=== PATIENT | male | born 1970 | race Hispanic/Latino ===

== ENCOUNTER 2025-02-25 09:35 | Inpatient (IN) | payer OTHER ==
[2025-02-25] VITALS (21 sets, daily range): BP systolic 124–152; BP diastolic 61–95; PULSE 57–83; RESP 9–17; TEMP 97.9–98.6; O2SAT 96–97
[~2025-02-25] VITALS: Ht 167.6 cm; Wt 79.4 kg
[~2025-02-25 09:35] MED LIST: CARV25TA PO; FURO20TA4 PO; HYDR50TA37 PO; ISOS20TA9 PO; LEVO25CA5 PO; SPIR25TA6 PO
[2025-02-25] MEDS: HEParin 5,000 UNIT VIAL ONE (09:46)
[2025-02-25 09:51] LABS: BASOPHILS # (AUTO) 0.05 K/uL (0.00-0.20); BASOPHILS % (AUTO) 1.2 % (0.0-5.0); EOSINOPHILS # (AUTO) 0.16 K/uL (0.00-0.70); EOSINOPHILS % (AUTO) 3.9 % (0.0-8.0); HEMATOCRIT 44.2 % (42-54); LYMPHOCYTES # (AUTO) 1.7 K/uL (1.0-4.8); LYMPHOCYTES % (AUTO) 41.8 % (21.0-51.0); MEAN CORPUSCULAR HEMOGLOBIN 30.4 pg (27.0-33.0); MEAN CORPUSCULAR HGB CONC 34.2 g/dL (32.0-36.0); MEAN CORPUSCULAR VOLUME 89.1 fL (79-99); MONOCYTES # (AUTO) 0.7 K/uL (0.1-1.0); MONOCYTES % (AUTO) 16.3 % (3.0-13.0); NEUTROPHILS # (AUTO) 1.5 K/uL (1.8-7.7); NEUTROPHILS % (AUTO) 36.8 % (40.0-77.0); PLATELET COUNT (AUTO) 242 K/uL (130-400); RED BLOOD CELL COUNT(AUTO) 4.96 MIL/uL (4.50-6.20); RED CELL DISTRIBUTION WIDTH 13.2 % (11.0-15.5); WHITE BLOOD COUNT (AUTO) 4.1 K/uL (4.8-10.8)
[2025-02-25] MEDS: NITROGLYCERIN 0.4 MG SL TAB SL ONE (09:51)
[2025-02-25] MEDS ORDERED: cloPIDOgrel 300MG TAB ONE (09:55)
[2025-02-25] MEDS ORDERED: HEParin 10,000 UNIT/10ML (1,000 UNIT/ML) VIAL ONE (09:55)
[2025-02-25] MEDS ORDERED: MIDAZOLAM HCL 1 MG/ML 2ML VIAL ONE (09:56)
[2025-02-25] MEDS ORDERED: IOHEXOL 350 MG/ML 100ML INFUS..BTL IV ONE (09:57)
[2025-02-25 10:00] LABS: CREATININE 1.6 mg/dL (0.5-1.3); POTASSIUM 4.1 mmol/L (3.5-5.1)
[2025-02-25] MEDS ORDERED: NITROGLYCERIN 0.4 MG SL TAB SL PRN (10:00)
[2025-02-25] MEDS ORDERED: HEParin 5,000 UNIT VIAL IV SCH (10:00)
[2025-02-25 10:01] LABS: INR 1.03 (0.85-1.15); PROTHROMBIN TIME 10.9 SEC (9.6-11.6)
[2025-02-25] MEDS ORDERED: FENTanyl CITRate PF 50 MCG/1 ML 2ML VIAL ONE (10:01)
[2025-02-25 10:03] LABS: PARTIAL THROMBOPLASTIN TIME 26.8 SEC (26.3-35.5)
[2025-02-25 10:13] LABS: MAGNESIUM 2.1 mg/dL (1.80-2.40)
--- NOTE | 2025-02-25 10:15 | ERN ---
General Chief Complaint: Chest Pain Stated Complaint: CP Time Seen by MD: 09:35 Source: patient, police History of Present Illness Initial Comments PATIENT IS A 54-YEAR-OLD GENTLEMAN COMING IN TO COMPLAINING OF CHEST PAIN. PER PATIENT CHEST PAIN BEGAN EARLIER TODAY. HE WAS SEEN BEFORE AT THE HOSPITAL BUT PER REPORT FROM EMS PATIENT LEFT AGAINST MEDICAL ADVICE. DELAYED TIME ON REPEAT EKG DUE TO LAW ENFORCEMENT PROTOCOL. UNABLE TO PROPERLY ASSESS DUE TO HAND CUT HAS BEEN IN PLACE AND ORDER NEEDED TO BE SENT FOR SUPERVISED WAS APPROVAL OF HAND CUFF RELEASE, TO PROPERLY ASSESS. Allergies: Coded Allergies: No Known Allergies (Unverified Allergy, Unknown, 02/21/25) Home Meds Reported Medications Hydralazine HCl (Hydralazine HCl) 50 Mg Tablet, 1 TAB PO BID for 30 Days, #60 TAB 0 Refills 02/21/25 Spironolactone (Spironolactone) 25 Mg Tablet, 1 TAB PO BID for 30 Days, #30 TAB 0 Refills 02/21/25 Levothyroxine Sodium (Levothyroxine) 25 Mcg Capsule, 1 CAP PO DAILY for 30 Days, #30 CAP 0 Refills 02/21/25 Isosorbide Dinitrate (Isosorbide Dinitrate) 20 Mg Tablet, 1 TAB PO BID for 30 Days, #60 TAB 0 Refills 02/21/25 Furosemide (Furosemide) 20 Mg Tablet, 1 TAB PO BID for 30 Days, #30 TAB 0 Refills 02/21/25 Carvedilol (Carvedilol) 25 Mg Tablet, 1 TAB PO BID for 30 Days, #60 TAB 0 Refills 02/21/25 Past Medical History Past Medical History: CAD, CHF, [place] Past Surgical History: Other Surgical History Other: TRAUMA LEFT LUNG ROS Dictation CONSTITUTIONAL: NO CHILLS, NO FEVER, NO WEAKNESS, NO DIAPHORESIS, NO MALAISE. HEAD/FACE: NO SIGNS OF TRAUMA. EENT: NO EYE PAIN, NO BLURRED VISION, NO TEARING, NO DOUBLE VISION, NO EAR PAIN, NO EAR DISCHARGE, NO NOSE PAIN, NO NASAL CONGESTION, NO THROAT PAIN, NO THROAT SWELLING, NO MOUTH PAIN. RESPIRATORY: NO COUGH, NO ORTHOPNEA, NO SOB, NO STRIDOR, NO WHEEZING. CARDIOVASCULAR: CHEST PAIN, NO EDEMA, NO PALPITATIONS, NO SYNCOPE. GASTROINTESTINAL/ABDOMINAL: NO ABDOMINAL PAIN, NO CONSTIPATION, NO DIARRHEA, NO NAUSEA, NO VOMITING. GENITOURINARY: NO ABNORMAL DISCHARGE, NO DYSURIA, NO FREQUENT URINATION, NO HEMATURIA. NO COMPLAINTS OF PAIN IN THE GENITALS. MUSCULOSKELETAL: NO BACK PAIN, NO GOUT, NO JOINT PAIN, NO JOINT SWELLING, NO MUSCLE PAIN, NO MUSCLE STIFFNESS, NO NECK PAIN. INTEGUMENTARY: NO CHANGE IN COLOR, NO CHANGE IN HAIR/NAILS, NO DRYNESS, NO LESION, NO LUMPS, NO RASH. NEUROLOGICAL/PSYCH: NO ANXIETY, NOT DEPRESSED, NO EMOTIONAL PROBLEM, NO HEA DACHE, NO NUMBNESS, NO PRE-EXISTING DEFICIT, NO HISTORY OF SEIZURES, NO TREMORS, NO WEAKNESS. HEMATOLOGIC/LYMPHATIC: NOT ANEMIC, NO HISTORY OF BLOOD CLOTS, NO APPARENT BLEEDING, NO BRUISING, GLANDS NOT SWOLLEN. ALL SYSTEMS NEGATIVE, EXCEPT NOTED. Physical Exam Physical Exam Dictation VITAL SIGNS: REVIEWED. GENERAL APPEARANCE: ALERT, ORIENTED X3, NO ACUTE DISTRESS, OBESE. HEAD AND FACE: NON-TRAUMATIC. EYES: PERRL, PINK CONJUNCTIVAS, EYELID NO TRAUMA, ANTERIOR CHAMBER CLEAR. EARS: PINNAS INTACT AND NO SIGNS OF TRAUMA OR ERYTHEMA. EAR CANALS CLEAR AND NO DISCHARGE. TMS NO ERYTHEMA. NOSE: NO DISCHARGE, NO BLEEDING. OROPHARYNX: MOUTH NORMAL, TEETH NO CARIES, TONGUE PINK. PHARYNX CLEAR, NO ERYTHEMA. TONSILS NO EXUDATES, NO ABSCESSES NOTED. MUCOUS MEMBRANE MOIST. NECK: SUPPLE, NON-TENDER, NO THYROMEGALY, NO MASSES, NO JVD, NO BRUITS. BREAST: DEFERRED. CHEST: NO TENDERNESS, NO CREPITUS, NO PARADOXICAL MOVEMENT, NO RETRACTIONS. LUNGS: CLEAR, WELL-VENTILATED, SYMMETRIC, NO RALES, NO WHEEZING, NO RHONCHI, NO STRIDOR, GOOD BREATH SOUNDS BILATERALLY. HEART: REGULAR RATE, REGULAR RHYTHM, NO MURMUR, NO GALLOPS. VASCULAR: NO PERIPHERAL EDEMA. ABDOMEN: SOFT, POSITIVE BOWEL SOUNDS, NONDISTENDED, NO GUARDING, NONTENDER, NO REBOUND, NO MASSES NO HEPATOMEGALY, NO SPLENOMEGALY, NO KUMARI'S SIGN, NO HERNIAS. RECTAL: DEFERRED. GENITAL: DEFERRED. NEUROLOGICAL: NORMAL SPEECH, GROSS MOTOR FUNCTION INTACT, GROSS SENSORY FUNCTION INTACT. MUSCULOSKELETAL: NECK NONTENDER, FULL RANGE OF MOTION, BACK NONTENDER, FULL RANGE OF MOTION. EXTREMITIES: NONTENDER, FULL RANGE OF MOTION. SKIN: COLOR PINK, DRY, NO TURGOR, NO RASH, NO LACERATIONS, NO ABRASIONS, NO CONTUSIONS. LYMPHATICS: DEFERRED. Results Laboratory and Microbiology Lab and Micro Result Laboratory Tests Test 02/25/25 09:44 White Blood Count 4.1 K/uL (4.8-10.8) L Red Blood Count 4.96 MIL/uL (4.50-6.20) Hemoglobin 15.1 g/dL (14.0-18.0) Hematocrit 44.2 % (42-54) Mean Corpuscular Volume 89.1 fL (79-99) Mean Corpuscular Hemoglobin 30.4 pg (27.0-33.0) Mean Corpuscular Hemoglobin Concent 34.2 g/dL (32.0-36.0) Red Cell Distribution Width 13.2 % (11.0-15.5) Platelet Count 242 K/uL (130-400) Mean Platelet Volume 9.9 fL (7.5-10.5) Immature Granulocyte % (Auto) 0.0 % (0-1) Neutrophils (%) (Auto) 36.8 % (40.0-77.0) L Lymphocytes (%) (Auto) 41.8 % (21.0-51.0) Monocytes (%) (Auto) 16.3 % (3.0-13.0) H Eosinophils (%) (Auto) 3.9 % (0.0-8.0) Basophils (%) (Auto) 1.2 % (0.0-5.0) Neutrophils # (Auto) 1.5 K/uL (1.8-7.7) L Lymphocytes # (Auto) 1.7 K/uL (1.0-4.8) Monocytes # (Auto) 0.7 K/uL (0.1-1.0) Eosinophils # (Auto) 0.16 K/uL (0.00-0.70) Basophils # (Auto) 0.05 K/uL (0.00-0.20) Absolute Immature Granulocyte (auto 0.00 K/uL (0-1) Nucleated Red Blood Cells 0.0 % (0.0-0.19) Prothrombin Time 10.9 SEC (9.6-11.6) Prothromb Time International Ratio 1.03 (0.85-1.15) Activated Partial Thromboplast Time 26.8 SEC (26.3-35.5) Sodium Level 139 mmol/L (136-145) Potassium Level 4.1 mmol/L (3.5-5.1) Chloride Level 103 mmol/L (101-111) Carbon Dioxide Level 32 mmol/L (21-32) Blood Urea Nitrogen 22 mg/dL (7-18) H Creatinine 1.6 mg/dL (0.5-1.3) H Glomerular Filtration Rate Calc 50 mL/min (>90) Random Glucose 109 mg/dL (70-105) H Total Calcium 9.0 mg/dL (8.5-10.1) Magnesium Level 2.10 mg/dL (1.80-2.40) Total Creatine Kinase 231 U/L (21-232) # Troponin I High Sensitivity 504 ng/L (4-75) *H B-Type Natriuretic Peptide 88 pg/mL (0-100) Triglycerides Level 67 mg/dL (30-200) Cholesterol Level 184 mg/dL (<200) LDL Cholesterol 91 mg/dL (0-99) HDL Cholesterol 61 mg/dL (29-71) Labs Reviewed?: Yes EKG/XRAY/US/CT/MRI EKG Comment EMS EKG ST WAVE ELEVATION V2 V3 V4 V5 CONSISTENT WITH STEMI REPEAT EKG ER 02/25/2025 TIME 9:37 A.M. VENTRICULAR RATE 85 SINUS RHYTHM [place] [address] WAVE CHANGES SUGGESTIVE OF STEMI UNABLE TO FULLY ASSESS WITH PROPER EKG DUE TO PATIENT BEING HANDCUFFED MDM MDM: DIFFERENTIAL DIAGNOSIS: STEMI, NSTEMI, CHEST PAIN, RATIONALE: TESTS CONSIDERED AND ORDERED SECONDARY TO SHARED DECISION MAKING INCLUDE: LABS, ECG AND RADIOLOGY PREVIOUS OUTSIDE RECORDS REVIEWED: OLD ER VISITS. RISK OF COMPLICATION AND/OR MORBIDITY OR MORTALITY OF PATIENT MANAGEMENT: NONE MEDICATIONS-PER MEDICATION RECONCILIATION NEED FOR HOSPITALIZATION: PATIENT DOES MEET CRITERIA FOR HOSPITALIZATION. NEED FOR EMERGENCY MAJOR/MINOR SURGERY: NO THERE ARE NO SOCIAL CONCERNS WITH THIS PATIENT. PRESCRIPTION DRUG MANAGEMENT PRESCRIPTIONS WILL INCLUDE SYMPTOMATIC CARE PATIENT'S PRIOR EXTERNAL MEDICAL RECORDS FROM OTHER ER VISITS WERE REVIEWED BY ME INDICATED. PRIOR TESTING AND RESULTS FROM PREVIOUS VISITS WERE REVIEWED. PRIOR TESTS WERE TAKEN INTO ACCOUNT WITH MEDICAL DECISION MAKING AND RESOURCE UTILIZATION, INDEPENDENT HISTORIAN/HISTORIANS WERE USED TO OBTAIN COMPLETE MEDICAL HISTORY. I INDEPENDENTLY INTERPRETED THE TEST THAT WERE PERFORMED, RESULTS WERE REVIEWED BY ME AND CONSIDERED FINDINGS ON RADIOLOGY IF ORDERED. MEDICAL MANAGEMENT AND EXAMINATION INTERPRETATION DISCUSSIONS WERE HAD BY ME WITH OTHER QUALIFIED HEALTHCARE PROFESSIONALS INDICATED FOR THE PATIENT'S CARE. PATIENT WILL BE ADMITTED UNDER THE CARE OF DR. METZ FOR ONGOING MANAGEMENT, OCCUPATIONAL THERAPY DEPARTMENT CHAIR DR. PARNELL TOOK PATIENT TO [facility] ED Course Orders Procedure Category Date Status Time Cbc With Differential LAB 02/25/25 In Process 09:36 Prothrombin Time With LAB 02/25/25 Complete INR 09:36 B-Type Natriuretic LAB 02/25/25 In Process Peptide 09:36 Lipid Panel LAB 02/25/25 Complete 09:36 Chest 1vw RAD 02/25/25 Logged 09:36 12 Lead Ekg Tracing- EKG 02/25/25 Complete Technical 09:36 Magnesium LAB 02/25/25 Complete 09:36 Creatine Kinase, Total LAB 02/25/25 Complete 09:36 Troponin I High LAB 02/25/25 Complete Sensitivity 09:36 Urinalysis Profile LAB 02/25/25 Logged 09:36 Partial LAB 02/25/25 Complete Thromboplastin Time 09:36 Basic Metabolic Panel LAB 02/25/25 Complete 09:36 Nitroglycerin 0.4mg PHA 02/25/25 Complete Sl Tab (Nitrostat) 09:41 Heparin 5,000 Unit PHA 02/25/25 Complete Vial (Heparin 5,000 U 09:43 Nitroglycerin 0.4mg PHA 02/25/25 Complete Sl Tab (Nitrostat) 10:00 Table Keeper Procedure CATH 02/25/25 In Process Request 12:00 Clopidogrel 300mg Tab PHA 02/25/25 Complete (Plavix 300mg Tab) 09:55 Heparin 10,000 PHA 02/25/25 Complete Unit/10ml (Heparin 09:55 Midazolam Hcl (Versed) PHA 02/25/25 Complete 09:56 Iohexol (Omnipaque) PHA 02/25/25 Complete 09:57 Nitroglycerin 0.4mg PHA 02/25/25 In Process Sl Tab (Nitrostat) 10:00 Fentanyl Citrate Pf PHA 02/25/25 Complete 0.05 Mg/Ml (Fentanyl 10:01 Heparin 5,000 Unit PHA 02/25/25 Complete Vial (Heparin 5,000 U 10:00 Heparin 5,000 Unit PHA 02/25/25 Complete Vial (Heparin 5,000 U 10:30 Heparin 5,000 Unit PHA 02/25/25 Complete Vial (Heparin 5,000 U 10:30 Lidocaine Hcl PHA 02/25/25 Complete 400mg/20ml (Lidocaine 10:21 Heparin-Ns 1,000 PHA 02/25/25 Complete Unit/500 Ml 10:22 Nitroglycerin 50mg PHA 02/25/25 Complete Vial (Tridil 50mg/10m 10:22 Iohexol (Omnipaque) PHA 02/25/25 Complete 10:34 Aspirin 325mg Ec Tab PHA 02/25/25 Complete (Aspirin 325mg Ec T 10:50 Current Medications Medications (Trade) Dose Ordered Sig/Imelda Route PRN Reason Start Time Stop Time Status Last Admin Dose Admin Aspirin (Aspirin 325mg Ec Tab) 325 mg STK-MED ONCE PO 02/25/25 10:50 02/25/25 10:50 DC Clopidogrel Bisulfate (plaVIX 300MG TAB) 300 mg STK-MED ONCE .ROUTE 02/25/25 09:55 02/25/25 09:55 DC Fentanyl Citrate (FENTanyl CITRate PF 50 MCG/ 1 ML 2ML VIAL) 100 mcg STK-MED ONCE .ROUTE 02/25/25 10:01 02/25/25 10:01 DC Heparin Sodium (Porcine) (HEParin 10,000 UNIT/10ML) 10,000 unit STK-MED ONCE .ROUTE 02/25/25 09:55 02/25/25 09:55 DC Heparin Sodium (Porcine) (HEParin 5,000 UNIT VIAL) 4,000 unit ONCE IV 02/25/25 10:00 02/25/25 10:06 DC Heparin Sodium (Porcine) (HEParin 5,000 UNIT VIAL) 4,000 unit ONCE ONCE IV 02/25/25 10:30 02/25/25 10:09 DC Heparin Sodium (Porcine) (HEParin 5,000 UNIT VIAL) 5,000 unit ONCE ONCE IV 02/25/25 10:30 02/25/25 10:31 DC 02/25/25 10:20 Heparin Sodium (Porcine) (HEParin 5,000 UNIT VIAL) 5,000 unit STK-MED ONCE .ROUTE 02/25/25 09:43 02/25/25 09:44 DC 02/25/25 09:46 Heparin Sodium/ Sodium Chloride 1,000 ml @ As Directed STK-MED ONCE IV 02/25/25 10:22 02/25/25 10:22 DC Iohexol (Omnipaque) 50 ml STK-MED ONCE IV 02/25/25 10:34 5/7/25 10:34 DC Iohexol (Omnipaque) 35,000 mg STK-MED ONCE IV 02/25/25 09:57 02/25/25 09:57 DC Lidocaine HCl (Lidocaine HCl 400mg/20ml) 20 ml STK-MED ONCE .ROUTE 02/25/25 10:21 02/25/25 10:22 DC Midazolam HCl (Versed) 2 mg STK-MED ONCE .ROUTE 02/25/25 09:56 02/25/25 09:56 DC Nitroglycerin (Nitrostat) 0.4 mg AD PRN SL CHEST PAIN 02/25/25 10:00 02/25/25 10:04 DC Nitroglycerin (Nitrostat) 0.4 mg AD PRN SL CHEST PAIN 02/25/25 10:00 03/27/25 09:59 02/25/25 10:20 Nitroglycerin (Nitrostat) 0.4 mg STK-MED ONCE SL 02/25/25 09:41 02/25/25 09:41 DC 02/25/25 09:51 Nitroglycerin (Tridil 50mg/ 10ml) 50 mg STK-MED ONCE .ROUTE 02/25/25 10:22 02/25/25 10:22 DC Vital Signs Date Time Temp Pulse Resp B/P (MAP) Pulse Ox O2 Delivery O2 Flow Rate FiO2 02/25/25 09:37 98.4 85 18 119/87 97 Room Air 0 Critical Care Note Comments CRITICAL CARE PROCEDURE NOTE AUTHORIZED AND PERFORMED BY: ME TOTAL CRITICAL CARE TIME: APPROXIMATELY 36 MINUTES DUE TO A HIGH PROBABILITY OF CLINICALLY SIGNIFICANT, LIFE THREATENING DETERIO RATION, THE PATIENT REQUIRED MY HIGHEST LEVEL OF PREPAREDNESS TO INTERVENE EMERGENTLY AND I PERSONALLY SPENT THIS CRITICAL CARE TIME DIRECTLY AND PERSONALLY MANAGING THE PATIENT. THIS CRITICAL CARE TIME INCLUDED OBTAINING A HISTORY; EXAMINING THE PATIENT; PULSE OXIMETRY; ORDERING AND REVIEW OF STUDIES; ARRANGING URGENT TREATMENT WITH DEVELOPMENT OF A MANAGEMENT PLAN; EVALUATION OF PATIENT'S RESPONSE TO TREATMENT; FREQUENT REASSESSMENT; AND, DISCUSSIONS WITH OTHER PROVIDERS. THIS CRITICAL CARE TIME WAS PERFORMED TO ASSESS AND MANAGE THE HIGH PROBABILITY OF IMMINENT, LIFE-THREATENING DETERIORATION THAT COULD RESULT IN MULTI-ORGAN FAILURE. IT WAS EXCLUSIVE OF SEPARATELY BILLABLE PROCEDURES AND TREATING OTHER PATIENTS AND TEACHING TIME. PLEASE SEE MDM SECTION AND THE REST OF THE NOTE FOR FURTHER INFORMATION ON PATIENT ASSESSMENT AND TREATMENT. DX & DISP Disposition: Inpatient Departure Impression: Primary Impression: STEMI (ST elevation myocardial infarction) Condition: Stable Referrals: SELF,REFERRAL (PCP) MANUELA OLIVER MD February 25, 2025 10:15
[2025-02-25] MEDS: HEParin 5,000 UNIT VIAL IV ONE (10:20)
[2025-02-25] MEDS: NITROGLYCERIN 0.4 MG SL TAB SL PRN (10:20)
[2025-02-25] MEDS ORDERED: LIDOCAINE HCL 400MG/20ML VIAL ONE (10:21)
[2025-02-25] MEDS ORDERED: NITROGLYCERIN 50MG VIAL ONE (10:22)
[2025-02-25] MEDS ORDERED: HEParin-NS 1,000 UNIT/500 ML 1,000 ML IV ONE (10:22)
[2025-02-25 10:25] LABS: B-TYPE NATRIURETIC PEPTIDE 88 pg/mL (0-100)
[2025-02-25] MEDS ORDERED: HEParin 5,000 UNIT VIAL IV ONE (10:30)
[2025-02-25] MEDS ORDERED: IOHEXOL-350 50ML VIAL IV ONE (10:34)
[2025-02-25] MEDS ORDERED: ASPIRIN 325MG EC TAB PO ONE (10:50)
--- NOTE | 2025-02-25 11:09 | EKG ---
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1970 Requested By: MANUELA OLIVER Order Number: [id number] Reading MD: Bill Sweet Measurements Intervals [place] Rate: 85 P: 0 [place]: 79 QRS: 143 QRSD: 150 T: -25 QT: 441 QTc: 518 Interpretive Statements Sinus rhythm Atrial premature complex LBBB Acute anterior [place] in evolution ST elevation secondary to IVCD Compared to ECG 02/22/2025 10:38:15 Atrial premature complex(es) now present Right bundle-branch block now present Intraventricular conduction delay now present ST (T wave) deviation now present Myocardial infarct finding no longer present Electronically Signed On 02-25-2025 21:32:04 CDT by Bill Sweet Please click the below link to view image of tracing.
[2025-02-25] MEDS ORDERED: MAGNESIUM 2GM PREMIX 50ML 50 ML IV PRN (11:30)
[2025-02-25] MEDS ORDERED: acetaMINOPHEN WITH coDEINE 1 TAB TAB PO PRN ×2 (11:30)
[2025-02-25] MEDS ORDERED: acetaMINOPHEN 325 MG TAB PO PRN (11:30)
[2025-02-25] MEDS ORDERED: ondanSETRON 4MG INJ IVP PRN (11:30)
[2025-02-25] MEDS ORDERED: morPHINE 2 MG SYG IVP PRN (11:30)
[2025-02-25] MEDS ORDERED: 0.9%NACL 1000ML 1,000 ML IV SCH (11:30)
--- NOTE | 2025-02-25 11:46 | PRN ---
DATE OF PROCEDURE: 02/25/2025 PROCEDURE PERFORMED: LEFT HEART CATHETERIZATION, LV-GRAM, LEFT AND RIGHT SELECTIVE CORONARY ANGIOGRAM, IVUS TO THE MID LAD AND LEFT MAIN, PTCA AND STENTING OF THE MID LAD WITH A 4.0 X 23 MM XIENCE ANA POINT ARTHUR, RIGHT COMMON FEMORAL ANGIOGRAM, CONSCIOUS SEDATION, AND PERCLOSE SUTURE CLOSURE OF THE RIGHT COMMON FEMORAL ARTERY RELOCATION COORDINATOR: Durga Parnell MD, [facility] INDICATION: STEMI PROCEDURE NOTE: After informed consent was obtained the patient was prepped and draped in the usual sterile fashion. A 6 [place] arterial sheath was inserted in the right femoral artery using a micropuncture technique with ultrasound guidance with a front wall, first pass puncture. This was performed after fluoroscopic identification of bony landmarks to facilitate a more accurate puncture of the right common femoral artery. The arterial sheath was aspirated and flushed. PERCUTANEOUS CORONARY INTERVENTION: A six [place] JL4 guiding catheter was used for the intervention and provided good support. A 300 cm 0.014 in BMW wire provided good guidewire access and support. A 3.5 x 15 mm NC Euphora balloon was used to pre dilate a 95% mid LAD stenosis. A Tresata IVUS system was advanced to assess lesion characteristics, vessel diameter, and stenosis severity. A 4.0 by 23 mm Xience ana point drug-eluting stent was advanced and positioned just distal to the 1st diagonal branch and covered the lesion well. This was deployed at 14 and then 16 atmospheres with only a minor taper remaining within the segment of severe stenosis. There was appropriate step-up and step-down on either end of the stent. There was no evidence of edge dissection or perforation or distal embolization. The 6F JL-4 guide was used for selective left coronary angiograms in multiple obliquities. A JR-4 was advanced in a similar fashion to the ascending aorta over a J-tipped guidewire and was used for selective right coronary angiograms in multiple obliquities with findings as outlined below. A 6 [place] pigtail catheter was then advanced over a J-tipped guidewire to the ascending aorta and was prolapsed into the left ventricle. The catheter was aspirated and flushed and pressure measurements were obtained. A left ventriculogram was then performed in a 30� ALMONTE projection. A pullback procedure was then performed, and this catheter was removed over a J-tipped guidewire. A right common femoral angiogram was performed to assess suitability for Perclose suture closure and the Perclose device was deployed in standard fashion. Perclose suture closure was successful without bleeding or hematoma. The patient tolerated the procedure well and was returned to the holding area in stable condition. FINDINGS: LEFT HEART HEMODYNAMICS: The patient's LVEDP prior to LV-gram was 20 mm of mercury and after the LV-gram 18 mm of mercury. There was no aortic valve gradient on pullback procedure. LEFT VENTRICULOGRAM: A left ventriculogram in a 30 degree ALMONTE projection demonstrated moderate anteroapical, apical, and limited distal inferoapical hypokinesis with an LVEF estimate of 45%. Of note the patient is 2D echo three days prior to admission demonstrated an LVEF estimate of 40-45% prior to his STEMI, from a prior injury. There was no angiographic MR. CORONARY ANGIOGRAM: LEFT MAIN: The left main was normal both on IVUS and angiographically. LEFT ANTERIOR DESCENDING: The left anterior descending was large and measured 4.5 mm by IVUS proximal to the lesion stenosis. The proximal LAD was normal and just after the 1st septal garment parts cutter machine was a 30% tubular stenosis. The mid LAD distal to the 1st diagonal branch had a 95% napkin ring hourglass tubular stenosis. There was no visible thrombus. The distal LAD was normal in the apical LAD had a 30% tubular stenosis. The diagonal branches were normal. LEFT CIRCUMFLEX: The left circumflex was dominant and normal as were the obtuse marginal branches. RAMUS INTERMEDIATE BRANCH: A large ramus intermediate had a 40% proximal stenosis in a region of tortuosity. RIGHT CORONARY ARTERY: The right coronary was small, nondominant, and normal. IMPRESSION: Recent admission 02/21/2025 with acute coronary syndrome, left against medical advice and declined cardiac catheterization. 2D echo 02/22/2025 demonstrated an LVEF of 40-45%. Spontaneous reperfusion of the mid LAD by the time of coronary angiography. 95% mid LAD stenosis (culprit) status post IVUS guided PTCA and stenting with a 4.0 x 23 mm Xience ana point ARTHUR to 16 atmospheres (4.2 mm). Nonobstructive coronary artery disease in the left circumflex with a 40% ramus intermediate stenosis only and normal RCA. Mild ischemic cardiomyopathy with moderate anteroapical, apical, and inferoapical hypokinesis with LVEF estimate of 45%. No mitral regurgitation. No aortic stenosis. RECOMMENDATION: One year of dual antiplatelet therapy per guidelines Lifelong JOSIAH inhibitor, beta-anu, and statin therapy Previous evidence of anteroapical hypokinesis by 2D echo 02/22/2025 with elevated with LVEF of 40-45% COMPLICATIONS OF PROCEDURE: None, the patient tolerated the procedure well and was returned to his room in stable condition. HEMOSTASIS: Perclose suture closure successful without bleeding or hematoma. ESTIMATED BLOOD LOSS: Less than 10 mL. CONTRAST TOTAL: 205 mL. DURGA PARNELL MD February 25, 2025 11:46
--- NOTE | 2025-02-25 15:23 | HMCIMG ---
Exam Type: CHEST 1VW Clinical Information: CP Comparison: None Findings: The lungs are clear of infiltrates. The heart is normal in size. The bony and soft tissue structures of the chest are unremarkable. Impression: Clear lungs.
--- NOTE | 2025-02-25 15:49 | NUR ---
DCP: [facility] Pt currently at [facility]. Guards at bedside. DC plan is to return back to [facility] when cleared for dc. Addendum: 02/25/25 at 1551 by JOELLEN VALDIVIA SS Amended: Links added.
--- NOTE | 2025-02-25 18:54 | EKG ---
[facility] Test Date: 2025-02-25 Test Time: 16:40:38 Pat Name: MICHAEL WINSLOW Department: [facility] Room: 208 1 Gender: M Guardian Ad Litem: BESSIE : 1970 Requested By: DURGA PARNELL Order Number: [id number] Reading MD: Durga Parnell Measurements Intervals [place] Rate: 65 P: 76 FL: 211 QRS: 71 QRSD: 95 T: 198 QT: 540 QTc: 562 Interpretive Statements Sinus rhythm Prolonged FL interval ST elevation resolving Evolving anterior NE with QT prolongation Prolonged QT interval Compared to ECG 02/25/2025 12:22:39 First degree AV block now present Myocardial infarct finding no longer present Possible ischemia no longer present T-wave abnormality still present Electronically Signed On 02-25-2025 21:38:56 CDT by Durga Parnell Please click the below link to view image of tracing.
--- NOTE | 2025-02-25 18:54 | EKG ---
[facility] Test Date: 2025-02-25 Test Time: 12:22:39 Pat Name: MICHAEL WINSLOW Department: [facility] Room: 208 1 Gender: M Husbandry Person: BESSIE : 1970 Requested By: DURGA PARNELL Order Number: [id number] Reading MD: Durga Parnell Measurements Intervals [place] Rate: 65 P: 79 AL: 198 QRS: 78 QRSD: 90 T: 169 QT: 514 QTc: 534 Interpretive Statements Normal sinus rhythm Septal infarct , age undetermined ST & Marked T wave abnormality, consider anterolateral ischemia Prolonged QT Compared to ECG 02/25/2025 09:37:15 ST elevation has improved and T-wave abnormality now present Prolonged QT interval now present Atrial premature complex(es) no longer present Right bundle-branch block no longer present Intraventricular conduction delay no longer present ST (T wave) deviation no longer present Electronically Signed On 02-25-2025 21:36:30 CDT by Durga Parnell Please click the below link to view image of tracing.
[2025-02-25] MEDS: furoSEMIDE 20 MG TABLET PO SCH (20:08)
[2025-02-25] MEDS: atorVAStatin 40 MG TABLET PO SCH (20:08)
[2025-02-25] MEDS: carVEDIlol 25 MG TABLET PO SCH (20:09)
[2025-02-26] VITALS (9 sets, daily range): BP systolic 95–126; BP diastolic 55–86; PULSE 54–82; RESP 18–20; TEMP 97.8–98.9; O2SAT 99
--- NOTE | 2025-02-26 01:00 | NUR ---
report given to BRIEN SPENCER RN FOR CONTINUATION OF CARE.
[2025-02-26 03:50] LABS: BASOPHILS # (AUTO) 0.03 K/uL (0.00-0.20); BASOPHILS % (AUTO) 0.4 % (0.0-5.0); EOSINOPHILS # (AUTO) 0.11 K/uL (0.00-0.70); EOSINOPHILS % (AUTO) 1.6 % (0.0-8.0); HEMATOCRIT 40.4 % (42-54); IMMATURE GRANULOCYTE ABSOLUTE 0.01 K/uL (0-1); LYMPHOCYTES # (AUTO) 1.6 K/uL (1.0-4.8); LYMPHOCYTES % (AUTO) 24.6 % (21.0-51.0); MEAN CORPUSCULAR HEMOGLOBIN 30.5 pg (27.0-33.0); MEAN CORPUSCULAR HGB CONC 34.9 g/dL (32.0-36.0); MEAN CORPUSCULAR VOLUME 87.4 fL (79-99); MONOCYTES # (AUTO) 0.8 K/uL (0.1-1.0); MONOCYTES % (AUTO) 12.6 % (3.0-13.0); NEUTROPHILS % (AUTO) 60.7 % (40.0-77.0); PLATELET COUNT (AUTO) 236 K/uL (130-400); RED BLOOD CELL COUNT(AUTO) 4.62 MIL/uL (4.50-6.20); RED CELL DISTRIBUTION WIDTH 13.1 % (11.0-15.5); WHITE BLOOD COUNT (AUTO) 6.7 K/uL (4.8-10.8)
[2025-02-26 04:22] LABS: ALBUMIN 3.2 g/dL (3.5-5.0); BILIRUBIN,TOTAL 0.4 mg/dL (0.2-1.0); CREATININE 1.4 mg/dL (0.5-1.3); MAGNESIUM 1.9 mg/dL (1.80-2.40); POTASSIUM 4.1 mmol/L (3.5-5.1); THYROID STIMULATING HORMONE 1.97 uIU/mL (0.36-3.74); TOTAL PROTEIN, SERUM 7.3 g/dL (6.0-8.3)
--- NOTE | 2025-02-26 06:01 | HP ---
DATE OF SERVICE: 02/25/2025 HISTORY AND PHYSICAL PRESENTING COMPLAINT: Chest pain. HISTORY OF PRESENT ILLNESS: A 54-year-old male with history of hypertension, hypothyroidism, CHF, and possible coronary artery disease who presented to the hospital with chest pain, being started earlier this morning for this pressure like, localized to the left side and radiating to the neck. The patient found with ST elevation by EMS and was brought to the Emergency Room. The patient was discharged from this facility yesterday evening. During the previous admission, the patient was found with NSTEMI and was offered stress test and was discharged back to the alf. The patient was taken to cardiac catheterization today and was found to have a 95% stenosis of the mid LAD, for which stent was deployed. EF was 45%. The patient transferred to ICU and continued on antiplatelets. No diarrhea. No abdominal pain. Denies shortness of breath. No palpitations or orthopnea. PAST MEDICAL HISTORY: * Hypertension. * Coronary artery disease. * Hypothyroidism. * CHF. PAST SURGICAL HISTORY: Left lung surgery following trauma. ALLERGIES: No known drug allergies. HOME MEDICATIONS: Reviewed. SOCIAL HISTORY: Denies alcohol, tobacco or illicit drug abuse. The patient presently incarcerated. FAMILY HISTORY: Noncontributory. REVIEW OF SYSTEMS: CONSTITUTIONAL: Consistent with no fever or chills. No weight loss or night sweats. EYES: No eye pain. No photophobia or diplopia. HENT: No sore throat. No rhinorrhea. NECK: No neck pain or neck swelling. RESPIRATORY: No cough, hemoptysis or pleuritic pain. CARDIOVASCULAR: Positive for chest pain. No palpitations or orthopnea. GASTROINTESTINAL: Denies nausea, vomiting, or abdominal pain. GENITOURINARY: No dysuria, urgency or urinary frequency. CENTRAL NERVOUS SYSTEM: No headache, dyspnea, or slurred speech. PSYCHIATRIC: No depression. No suicidal ideation. PHYSICAL EXAMINATION: GENERAL: A middle-aged male, awake, not in distress. VITAL SIGNS: Temperature 98.4, pulse 65, respiratory rate 18, blood pressure 119/87. EYES: No icterus. Pupils equal and reactive. HENT: No oral thrush seen. Moist oral mucosa. NECK: Supple. No JVD or thyromegaly. LUNGS: Good air entry. No rales, no rhonchi. CARDIOVASCULAR SYSTEM: S1 and S2. Regular. No murmur. ABDOMEN: Soft and nontender. Bowel sounds are present. CENTRAL NERVOUS SYSTEM: Awake, alert, and oriented x 3. No focal deficits. SKIN: No rashes. No itchiness. LYMPHATIC: No peripheral lymphadenopathy. BACK: No deformity. No pressure ulcer. MUSCULOSKELETAL: No joint swelling, erythema or tenderness. LABORATORY DATA: BNP 88, troponin 504. Sodium 139, potassium 4.1, BUN 22, creatinine 1.6. WBC 4.1, hemoglobin 15.1, platelets 242. ASSESSMENT: A 54-year-old male brought in from alf with chest pain. Current problems include: * ST-elevation myocardial infarction involving the left anterior descending artery, status post cardiac translation and stenting. * Coronary artery disease. * Hypothyroidism. * Hypertension. * History of congestive heart failure. * Ischemic cardiomyopathy. PLAN: * Continue physical support. * Continue antiplatelet as recommended by Cardiology. * Continue antihypertensive. * Continue Aldactone. * Continue Synthroid. * Continue antiemetic. * Continue cardiac diet. * Continue Lipitor. TID: [id number] RECEIPT: [id number] [facility]
[2025-02-26] MEDS: levoTHYROxine 25 MCG TABLET PO SCH (06:25)
[2025-02-26] MEDS ORDERED: ASPIRIN 81MG CHEW TAB PO SCH (09:00)
[2025-02-26] MEDS: cloPIDOgrel 75MG TAB PO SCH (11:13)
[2025-02-26] MEDS: ASPIRIN 81MG CHEW TAB PO SCH (11:14)
[2025-02-26] MEDS: LISINOPRIL 10 MG TABLET PO SCH (11:14)
[2025-02-26] MEDS: SPIRONOLACTONE 25 MG TAB PO SCH (11:14)
--- NOTE | 2025-02-26 13:39 | PN ---
Cardiology Progress Note Date of Service: 02/26/2025 Attending Trackman: Dr. Earl Leiva Primary Trackman: Dr. Bill Sweet Reason for Consult: ACS-STEMI Problem List: -ACS-STEMI: Culprit lesion: 95% napkin ring/hourglass tubular stenosis s/p PCI with PTCA and ARTHUR placement (XSP 4.0x23 mm) in the mid LAD done on 02/25/[address] Sweet -HTN -HLP -CKD stage III -Hypothyroidism Subjective: This is a 54y/o male who was seen and evaluated at the bedside today. The patient underwent successful PCI of the mid LAD yesterday by Dr. Sweet. He tolerated the procedure well and without issue. The patient denies any recurrent chest pain, chest pressure, palpitations, or shortness of breath. As per the nurse, there were no overnight events. Vitals/Labs Vital Signs Date Time Temp Pulse Resp B/P (MAP) Pulse Ox O2 Delivery O2 Flow Rate FiO2 02/26/25 11:15 125/86 02/26/25 11:00 98.4 72 20 99 Room Air 02/26/25 08:00 0 21 General: Awake and alert. No acute distress. Chronically ill appearing. HEENT: Normocephalic, atraumatic. EOMI. Oral mucosa was moist. Neck: No masses, JVD, or carotid bruits noted. Resp: SCM. Bilateral air entry. Faint rhonchi noted throughout. Cardio: Regular rate. Normal S1 and S2, +S4. No obvious murmurs, gallops, or rubs noted. GI: Soft, nontender, no organomegaly noted. Normoactive bowel sounds x 4 quadrants. Ext: No edema, clubbing, or cyanosis. Palpable pulses noted throughout. The right groin access site is tender to palpation, but free of significant bleeding, bruising, or hematoma formation. Neuro: Cranial nerves II-XII are grossly intact. No obvious focal deficits identified. Laboratory Tests 02/26/25 03:41 Assessment: -ACS-STEMI: Culprit lesion: 95% napkin ring/hourglass tubular stenosis s/p PCI with PTCA and ARTHUR placement (XSP 4.0x23 mm) in the mid LAD done on 02/25/[address] Sweet -HTN -HLP -CKD stage III -Hypothyroidism Plan: 1. ACS-STEMI: Culprit lesion: 95% napkin ring/hourglass tubular stenosis s/p PCI with PTCA and ARTHUR placement (XSP 4.0x23 mm) in the mid LAD done on 02/25/[address] Sweet -Caterina -The patient denies any recurrent chest pain, chest pressure, palpitations, or shortness of breath. -The patient will continue on goal directed ACS therapy which includes aspirin 81 mg daily, clopidogrel 75 mg daily, carvedilol 25 mg BID, lisinopril 10 mg daily, and atorvastatin 40 mg QHS. The patient will remain on DAPT for a minimum of 1 year as per ACS guidelines. -A 2D echocardiogram has been ordered (and completed, but pending to be read) to assess the patient's systolic/diastolic function and for any wall motion abnormalities. This case was discussed with my Supervising Physician, Dr. Earl Leiva, and the above mentioned plan was formulated and agreed upon. -Progress Note writtent by Alfredo Zepeda, MSN, CHEMICAL TANK WORKER, AGACNP-BC ALFREDO ZEPEDA [employer] February 26, 2025 13:39
--- NOTE | 2025-02-26 22:23 | PN ---
INFECTIOUS DISEASE PROGRESS NOTE Date of Service: February 26, 2025 SUBJECTIVE: This is a 54-year-old male patient who is status post heart catheterization day #1. Patient is awake, alert and oriented x3. Patient denying chest pain at this time. The right groin is soft, very minimal dry blood but no hematoma. No fever, temperature is 97.9�. The renal function is improving, BUN is 19 and creatinine of 1.6. Patient is on Plavix and aspirin. No episodes of nausea or vomiting. Plan to discharge patient back to [facility] tomorrow if stable. PHYSICAL EXAM EYES: Anicteric. Pupils equal and reactive. HENT: No oral thrush seen, moist Oral mucosa NECK: Supple, no JVD or thyromegaly. LUNGS: Good air entry. No rales, no rhonchi. CARDIOVASCULAR: S1, S2 regular. No murmur heard. ABDOMEN: Soft, non tender, bowel sounds present, no organomegaly CENTRAL NERVOUS SYSTEM: Awake, alert, oriented x 3. No focal deficits. SKIN: No rashes, no swelling. LYMPHATICS: No peripheral lymphadenopathy MUSCULOSKELETAL: No joint swelling, erythema or tenderness. EXTREMITIES: No cyanosis or clubbing. Right groin puncture site. BACK: No deformity, no pressure ulcer. GENITOURINARY: No dysuria or hematuria Vital Sign (Last 12 Hours) 02/26/25 02/26/25 02/26/25 02/26/25 11:00 11:15 16:00 19:24 Temp 98.4 98.6 98.8 Pulse 72 61 65 Resp 20 20 18 B/P (MAP) 121/80 125/86 110/68 95/55 Pulse Ox 99 100 100 O2 Delivery Room Air Room Air Room Air 02/26/25 19:57 B/P (MAP) 106/71 Intake & Output (last 24hrs) 02/25/25 02/25/25 02/26/25 15:00 23:00 07:00 Intake Total 640.0 ml 400.0 ml Output Total 325 ml 500 ml 600 ml Balance 315.0 ml -100.0 ml -600 ml LABS: Laboratory: Test 02/26/25 03:41 02/25/25 16:00 02/25/25 09:44 Range/Units White Blood Count 6.7 # 4.8-10.8 K/uL Red Blood Count 4.62 4.50-6.20 MIL/uL Hemoglobin 14.1 14.0-18.0 g/dL Hematocrit 40.4 L 42-54 % Mean Corpuscular Volume 87.4 79-99 fL Mean Corpuscular Hemoglobin 30.5 27.0-33.0 pg Mean Corpuscular Hemoglobin Concent 34.9 32.0-36.0 g/dL Red Cell Distribution Width 13.1 11.0-15.5 % Platelet Count 236 130-400 K/uL Mean Platelet Volume 9.9 7.5-10.5 fL Immature Granulocyte % (Auto) 0.1 0-1 % Neutrophils (%) (Auto) 60.7 40.0-77.0 % Lymphocytes (%) (Auto) 24.6 21.0-51.0 % Monocytes (%) (Auto) 12.6 3.0-13.0 % Eosinophils (%) (Auto) 1.6 0.0-8.0 % Basophils (%) (Auto) 0.4 0.0-5.0 % Neutrophils # (Auto) 4.0 1.8-7.7 K/uL Lymphocytes # (Auto) 1.6 1.0-4.8 K/uL Monocytes # (Auto) 0.8 0.1-1.0 K/uL Eosinophils # (Auto) 0.11 0.00-0.70 K/uL Basophils # (Auto) 0.03 0.00-0.20 K/uL Absolute Immature Granulocyte (auto 0.01 0-1 K/uL Nucleated Red Blood Cells 0.0 0.0-0.19 % Sodium Level 137 136-145 mmol/L Potassium Level 4.1 3.5-5.1 mmol/L Chloride Level 103 101-111 mmol/L Carbon Dioxide Level 26 21-32 mmol/L Blood Urea Nitrogen 19 H 7-18 mg/dL Creatinine 1.4 H 0.5-1.3 mg/dL Glomerular Filtration Rate Calc 59 >90 mL/min Random Glucose 108 H 70-105 mg/dL Total Calcium 8.8 8.5-10.1 mg/dL Magnesium Level 1.90 1.80-2.40 mg/dL Total Bilirubin 0.4 0.2-1.0 mg/dL Aspartate Amino Transf (AST/SGOT) 55 H 10-37 U/L Alanine Aminotransferase (ALT/SGPT) 29 12-78 U/L Alkaline Phosphatase 100 50-136 U/L Total Protein 7.3 6.0-8.3 g/dL Albumin 3.2 L 3.5-5.0 g/dL Triglycerides Level 32 30-200 mg/dL Cholesterol Level 161 <200 mg/dL LDL Cholesterol 96 0-99 mg/dL HDL Cholesterol 61 29-71 mg/dL Thyroid Stimulating Hormone (TSH) 1.97 0.36-3.74 uIU/mL Troponin I High Sensitivity 15771 *H 4-75 ng/L White Cell Morphology Comment See comments Prothrombin Time 10.9 9.6-11.6 SEC Prothromb Time International Ratio 1.03 0.85-1.15 Activated Partial Thromboplast Time 26.8 26.3-35.5 SEC Total Creatine Kinase 231 # 21-232 U/L B-Type Natriuretic Peptide 88 0-100 pg/mL ASSESSMENT: ST-elevation myocardial infarction, s/p cardiac catheterization and stenting. Coronary artery disease. History of congestive heart failure. Hypertension. Ischemic cardiomyopathy. Renal failure improving. PLAN: Continue Plavix. Continue diuretics. Continue antihypertensive. We will monitor electrolytes. Discharge planning for tomorrow if stable. This case was reviewed and discussed with my supervising physician and the above assessment and plan was formulated and agreed upon. ATTESTATION BY PHYSICIAN I have seen and examined the patient. I reviewed the documentation, medical decision making, and treatment plan as noted by the mid-level provider above. I agree with the findings and plan of care. CORBY HOLLAND MD, [facility] February 26, 2025 22:23
--- NOTE | 2025-02-27 00:52 | HMCSR ---
APPROVED REPORT EXAM: LIMITED Two-dimensional and M-mode echocardiogram. INDICATION ICD: S/P STEMI, ARTHUR PLACEMENT 2D Dimensions RVDd3.6 cmLVED Vol(simp.)77.0 mL LVES Vol(simp.)31.0 mL LVEF(%, simp.)59 % LA ESV INDEX (BP)20.11 mL/m2 Deformation Strain Apical 4-10.2 % Apical 2-8.3 % Apical 3-7.0 % Global Strain-8.5 % Left Ventricle The left ventricle is normal in size. The mid/apical anterior wall is hypokinetic. The other sumner ar e grossly normal in function. Moderate concentric left ventricular hypertrophy. Left ventricle systol ic function is low normal, estimated LVEF 50 to 55%. Indeterminate diastolic dysfunction. Right Ventricle The right ventricle is normal size. The right ventricular systolic function is normal. Atria The left atrium size is normal. The right atrium size is normal. Aortic Valve The aortic valve is normal in structure. No aortic regurgitation is present. There is no aortic valvu lar stenosis. Mitral Valve The mitral valve is normal in structure. There is no mitral valve regurgitation noted. There is no mi tral valve stenosis. Tricuspid Valve Tricuspid valve is not well visualized. Pulmonic Valve Pulmonic valve is not well visualized. Great Vessels The aortic root is not well visualized but is probably normal size. IVC is not well visualized. Pericardium No pericardial effusion. Conclusion The cardiac chambers are grossly normal in size. Moderate concentric left ventricular hypertrophy. The mid/apical anterior wall is hypokinetic. The other sumner are grossly normal in function. Left ventricle systolic function is low normal, estimated LVEF 50 to 55%. Indeterminate diastolic dysfunction. No obvious valvular abnormalities were seen. Right-sided pressures cannot be accurately assessed. No pericardial effusion.
[2025-02-27 03:27] VITALS: BP 100/72; PULSE 63; RESP 18; TEMP 98.5
[2025-02-27 07:37] VITALS: BP 110/67; PULSE 59; RESP 18; TEMP 97.9
[2025-02-27 08:00] VITALS: O2SAT 98
[2025-02-27] MEDS: carVEDIlol 25 MG TABLET PO SCH (09:42)
[2025-02-27 11:36] VITALS: BP 120/69; PULSE 64; RESP 18; TEMP 97.7
--- NOTE | 2025-02-27 11:53 | PN ---
Cardiology Progress Note Date of Service: 02/27/2025 Attending Diagnostics Sales Developer: Dr. Earl Leiva Primary Diagnostics Sales Developer: Dr. Bill Sweet Reason for Consult: ACS-STEMI Problem List: -ACS-STEMI: Culprit lesion: 95% napkin ring/hourglass tubular stenosis s/p PCI with PTCA and ARTHUR placement (XSP 4.0x23 mm) in the mid LAD done on 02/25/[address] Sweet -HFpEF (LVEF: 50-55% by echo done 02/26/2025) -HTN -HLP -CKD stage III -Hypothyroidism Subjective: This is a 54y/o male who was seen and evaluated at the bedside today. The patient denies any active complaints including chest pain, chest pressure, palpitations, or shortness of breath. As per the nurse, there were no overnight events. Vitals/Labs Vital Signs Date Time Temp Pulse Resp B/P (MAP) Pulse Ox O2 Delivery O2 Flow Rate FiO2 02/27/25 11:36 97.7 64 18 120/69 99 Room Air 02/27/25 08:00 0 21 General: Awake and alert. No acute distress. Chronically ill appearing. HEENT: Normocephalic, atraumatic. EOMI. Oral mucosa was moist. Neck: No masses, JVD, or carotid bruits noted. Resp: SCM. Bilateral air entry. Clear to auscultation bilaterally. No obvious wheezing, rales, or rhonchi noted. Cardio: Regular rate. Normal S1 and S2, +S4. No obvious murmurs, gallops, or rubs noted. GI: Soft, nontender, no organomegaly noted. Normoactive bowel sounds x 4 quadrants. Ext: No edema, clubbing, or cyanosis. Palpable pulses noted throughout. Neuro: Cranial nerves II-XII are grossly intact. No obvious focal deficits identified. Assessment: -ACS-STEMI: Culprit lesion: 95% napkin ring/hourglass tubular stenosis s/p PCI with PTCA and ARTHUR placement (XSP 4.0x23 mm) in the mid LAD done on 02/25/[address] Sweet -HFpEF (LVEF: 50-55% by echo done 02/26/2025) -HTN -HLP -CKD stage III -Hypothyroidism Plan: 1. ACS-STEMI: Culprit lesion: 95% napkin ring/hourglass tubular stenosis s/p PCI with PTCA and ARTHUR placement (XSP 4.0x23 mm) in the mid LAD done on 02/25/[address] Sweet -The patient denies any recurrent chest pain, chest pressure, palpitations, or shortness of breath. -The patient will continue on goal directed ACS therapy which includes aspirin 81 mg daily, clopidogrel 75 mg daily, carvedilol 12.5 mg BID, lisinopril 10 mg daily, and atorvastatin 40 mg QHS. The patient will remain on DAPT for a minimum of 1 year as per ACS guidelines. 2. HFpEF (LVEF: 50-55% by echo done 02/26/2025) -Continue furosemide 20 mg BID, carvedilol 12.5 mg BID, lisinopril 10 mg daily, and spironolactone 25 mg daily. The patient can be discharged from a Cardiac Standpoint. Please have the patient follow up with Cardiology, Dr. Bill Sweet, 1-2 weeks after discharge. This case was discussed with my Supervising Physician, Dr. Earl Leiva, and the above mentioned plan was formulated and agreed upon. -Progress Note writtent by Alfredo Zepeda, MSN, WAXER FLOOR, AGACNP-BC ALFREDO ZEPEDA NP February 27, 2025 11:53
--- NOTE | 2025-02-27 13:21 | HMCIMG ---
Right groin ultrasound Findings: No fluid collections or masses are seen. Significantly, there is no evidence of hematoma. No increased fluid throughout the visualized tissue planes is identified. No lymphadenopathy is identified. Impression: No evidence of hematoma or fluid collections or other abnormalities. No aneurysm or pseudoaneurysm.
--- NOTE | 2025-02-27 15:06 | DS ---
Discharge Summary DIAGNOSE(S): ACS-STEMI HOSPITAL COURSE SUMMARY: A 54-year-old male with history of hypertension, hypothyroidism, CHF, and possible coronary artery disease who presented to the hospital with chest pain, being started earlier this morning for this pressure like, localized to the left side and radiating to the neck. The patient found with ST elevation by EMS and was brought to the Emergency Room. The patient was taken to cardiac catheterization today and was found to have a 95% stenosis of the mid LAD, for which stent was deployed. EF was 45%. Patient has been stable and will be discharge with adjustment on cardiology medications. EMPLOYEE ADVISER(S): [employer] PROCEDURE(S)/TREATMENT(S): s/p PCI with PTCA and ARTHUR placement in the mid LAD done on 02/25/2025 PROBLEM(S): STEMI HTN, HLP, CKD statge III, hypothyroidsm DISCHARGE INSTRUCTIONS: Continue livestock nutrition territory manager recommendations follow with with livestock nutrition territory manager Home Meds Reported Medications Hydralazine HCl (Hydralazine HCl) 50 Mg Tablet, 1 TAB PO BID for 30 Days, #60 TA B 0 Refills 5/25 Spironolactone (Spironolactone) 25 Mg Tablet, 1 TAB PO BID for 30 Days, #30 TAB 0 Refills 5/3/25 Levothyroxine Sodium (Levothyroxine) 25 Mcg Capsule, 1 CAP PO DAILY for 30 Days, #30 CAP 0 Refills 5//25 Isosorbide Dinitrate (Isosorbide Dinitrate) 20 Mg Tablet, 1 TAB PO BID for 30 Days, #60 TAB 0 Refills 5/3/25 Furosemide (Furosemide) 20 Mg Tablet, 1 TAB PO BID for 30 Days, #30 TAB 0 Refills 5/3/25 Carvedilol (Carvedilol) 25 Mg Tablet, 1 TAB PO BID for 30 Days, #60 TAB 0 Refills 5/3/25 Time spent arranging discharge: 1-30 minutes NATTY STEVENSON February 27, 2025 15:06
--- NOTE | 2025-02-27 17:00 | NUR ---
DISCHARGE INSTRUCTIONS WERE GIVEN TO THIS PATIENT AND GUARDS WITHIN ROOM. TELE PACK WAS REMOVED AND RETURNED TO TELEMETRY ROOM. PIV TO RIGHT FOREARM WAS REMOVED AND DRY DRESSING APPLIED. PATIENT DENIES ANY PAIN NOR IS IN ANY RESPIRATORY DISTRESS. PATIENT WAS TAKEN DOWN BY GUARDS TO PRIVATE VEHICLE.
== END 2025-02-27 17:15 | disposition home or self-care (01) | DRG 322 ==
LOC: EEVIPCON 09:35 → EDH 09:35 → EDHIP 11:12 → 2BH 11:45 → 2AH 02-26 01:10
PROVIDERS: ADMIT Internal Medicine Infectious Disease; ATTEND Internal Medicine Infectious Disease
PROC: 027034Z Dilation of Coronary Artery, One Artery with Drug-eluting Intraluminal Device, Percutaneous Approach (ICD-10-PCS; principal; 2025-02-25)
PROC: 4A023N7 Measurement of Cardiac Sampling and Pressure, Left Heart, Percutaneous Approach (ICD-10-PCS; 2025-02-25)
PROC: B2111ZZ Fluoroscopy of Multiple Coronary Arteries using Low Osmolar Contrast (ICD-10-PCS; 2025-02-25)
PROC: B2151ZZ Fluoroscopy of Left Heart using Low Osmolar Contrast (ICD-10-PCS; 2025-02-25)
PROC: B241ZZ3 Ultrasonography of Multiple Coronary Arteries, Intravascular (ICD-10-PCS; 2025-02-25)
DX: I21.02 ST elevation (STEMI) myocardial infarction involving left anterior descending coronary artery (principal); I13.0 Hypertensive heart and chronic kidney disease with heart failure and stage 1 through stage 4 chronic kidney disease, or unspecified chronic kidney disease; I50.32 Chronic diastolic (congestive) heart failure; I25.10 Atherosclerotic heart disease of native coronary artery without angina pectoris; E03.9 Hypothyroidism, unspecified; I25.5 Ischemic cardiomyopathy; E78.5 Hyperlipidemia, unspecified; N18.30 Chronic kidney disease, stage 3 unspecified; Z53.29 Procedure and treatment not carried out because of patient's decision for other reasons; I25.2 Old myocardial infarction; Z79.02 Long term (current) use of antithrombotics/antiplatelets; Z79.82 Long term (current) use of aspirin; Z98.61 Coronary angioplasty status
CPT/HCPCS: 36415; 71045; 76882; 80048; 80053; 80061; 82550; 83735; 83880; 84443; 84484; 85025; 85347; 85610; 85730; 92978; 92979; 93005; 93308; 93356; 93458; 96374; 96376; 99156; 99157; 99291; C1760; C1769; C1887; C1894; C9600; G0378; J1644; J2250; J3010; J3490; Q9967; C1725; C1753; C1874; Q9965